=== PATIENT | male | born 2000 | race Caucasian/White ===

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

== ENCOUNTER 2019-03-21 01:44 | Emergency (ER) | payer OTHER ==
[~2019-03-21] VITALS: Ht 175.3 cm; Wt 77.3 kg
[2019-03-21] MEDS ORDERED: LIDOCAINE 1% 10 ML VIAL INJ ONE (03:15)
[2019-03-21 04:36] VITALS: BP 142/80
== END 2019-03-21 04:37 | disposition home or self-care (01) ==
LOC: EMS 01:45
DX: S63.267A Dislocation of metacarpophalangeal joint of left little finger, initial encounter (principal); J45.909 Unspecified asthma, uncomplicated; F17.210 Nicotine dependence, cigarettes, uncomplicated; F12.90 Cannabis use, unspecified, uncomplicated; Y04.0XXA Assault by unarmed brawl or fight, initial encounter; Y93.89 Activity, other specified; Y92.89 Other specified places as the place of occurrence of the external cause; Y99.8 Other external cause status
CPT/HCPCS: 26770; 73130; 73140; 99284; J3490

== ENCOUNTER 2022-05-16 07:18 | Emergency (ER) | payer OTHER ==
[~2022-05-16] VITALS: Ht 172.7 cm; Wt 61.4 kg
[2022-05-16 08:05] LABS: COVID AG,FIA SOURCE NASAL SWAB
[2022-05-16 08:55] LABS: INFLUENZA TYPE A NEGATIVE FOR TYPE A (NEGATIVE); INFLUENZA TYPE B NEGATIVE FOR TYPE B (NEGATIVE)
[2022-05-16] MEDS ORDERED: AZIT250T9 PO (11:01)
[2022-05-16] MEDS ORDERED: AMOX500C2 PO (11:01)
[2022-05-16] MEDS ORDERED: ACETAMINOPHEN 325 MG TABLET PO ONE (11:15)
[2022-05-16 11:30] VITALS: BP 120/70
== END 2022-05-16 11:50 | disposition home or self-care (01) ==
LOC: EMS 07:22
DX: J18.9 Pneumonia, unspecified organism (principal); J45.909 Unspecified asthma, uncomplicated; F12.90 Cannabis use, unspecified, uncomplicated; F17.210 Nicotine dependence, cigarettes, uncomplicated; Z20.822 Contact with and (suspected) exposure to COVID-19
CPT/HCPCS: 71045; 87804; 99284

== ENCOUNTER 2022-08-18 07:44 | Emergency (ER) | payer OTHER ==
[~2022-08-18] VITALS: Ht 170.2 cm; Wt 68.2 kg
[~2022-08-18 07:44] MED LIST: AMOX500C2 PO
[2022-08-18 07:47] VITALS: BP 123/79; PULSE 98; RESP 16; TEMP 98
[2022-08-18] MEDS ORDERED: PERTUSS(ACELL),DIPH,TET VAC/PF 0.5 ML SYRINGE IM. ONE (09:00)
[2022-08-18] MEDS ORDERED: AMOX1TAB16 PO (09:01)
== END 2022-08-18 09:43 | disposition home or self-care (01) ==
LOC: EMS 07:45
DX: S61.451A Open bite of right hand, initial encounter (principal); J45.909 Unspecified asthma, uncomplicated; F17.210 Nicotine dependence, cigarettes, uncomplicated; F12.90 Cannabis use, unspecified, uncomplicated; W54.0XXA Bitten by dog, initial encounter; Y93.89 Activity, other specified; Y92.89 Other specified places as the place of occurrence of the external cause; Y99.8 Other external cause status
CPT/HCPCS: 90715; 99283

== ENCOUNTER 2023-05-27 20:43 | Emergency (ER) | payer OTHER ==
[~2023-05-27] VITALS: Ht 172.7 cm; Wt 61.4 kg
[~2023-05-27 20:43] MED LIST changes: +AMOX1TAB16 PO
[2023-05-27 20:52] VITALS: BP 144/89
[2023-05-27] MEDS: IBUPROFEN 600 MG TABLET PO ONE (21:11)
[2023-05-27] MEDS: ACETAMINOPHEN 500 MG TABLET PO ONE (21:11)
[2023-05-27] MEDS: DEXAMETHASONE 4 MG TABLET PO ONE (21:11)
[2023-05-27] MEDS ORDERED: PENI500T2 PO (22:17)
[2023-05-27] MEDS ORDERED: IBUP-1492 PO (22:17)
[2023-05-27 22:20] VITALS: PULSE 104; RESP 18; TEMP 99.9
== END 2023-05-27 22:35 | disposition home or self-care (01) ==
LOC: EMS 20:43
DX: J02.0 Streptococcal pharyngitis (principal); J45.909 Unspecified asthma, uncomplicated; F17.210 Nicotine dependence, cigarettes, uncomplicated; F12.90 Cannabis use, unspecified, uncomplicated
CPT/HCPCS: 99284; 87430; J8540; Z7502; Z7610

== ENCOUNTER 2024-05-20 21:31 | Emergency (ER) | payer OTHER ==
[~2024-05-20] VITALS: Ht 172.7 cm; Wt 68.2 kg
[~2024-05-20 21:31] MED LIST changes: +AMOX-457 PO; -AMOX1TAB16 PO; +IBUP-1492 PO; +PENI500T2 PO
[2024-05-20 21:39] VITALS: TEMP 98
[2024-05-20 21:51] LABS: COVID AG,FIA SOURCE NASAL SWAB
[2024-05-20 22:03] LABS: RAPID GROUP A STREP NEGATIVE (NEGATIVE)
[2024-05-20 22:14] LABS: INFLUENZA TYPE A NEGATIVE FOR TYPE A (NEGATIVE); INFLUENZA TYPE B NEGATIVE FOR TYPE B (NEGATIVE); SARS-COV2 (COVID) ANTIGEN,FIA Negative (Negative)
[2024-05-21] MEDS ORDERED: AMOX250C4 PO (00:33)
[2024-05-21] MEDS: AMOXICILLIN TRIHYDRATE 250 MG CAPSULE PO ONE (00:38)
[2024-05-21 00:40] VITALS: BP 125/73; PULSE 75; RESP 18; O2SAT 99
== END 2024-05-21 00:41 | disposition home or self-care (01) ==
LOC: EMS 21:31
DX: J02.0 Streptococcal pharyngitis (principal); J45.909 Unspecified asthma, uncomplicated; F12.90 Cannabis use, unspecified, uncomplicated; F17.210 Nicotine dependence, cigarettes, uncomplicated; Z20.822 Contact with and (suspected) exposure to COVID-19
CPT/HCPCS: 87430; 87804; 99283